=== PATIENT | female | born 2000 | race Caucasian/White ===

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

== ENCOUNTER 2022-03-27 21:21 | Emergency (ER) | payer OTHER ==
[2022-03-27 21:58] VITALS: BP 112/71; PULSE 86; TEMP 98.6; BMI 22.4
[2022-03-27] MEDS ORDERED: LIDOCAINE PATCH REMOVAL MC SCH (22:00)
[2022-03-27] MEDS ORDERED: ACETAMINOPHEN 500 MG TABLET (FP) PO ONE (23:25)
[2022-03-27] MEDS ORDERED: LIDOCAINE 5% TOPICAL PATCH TP ONE (23:27)
[2022-03-27] MEDS ORDERED: ACETAMINOPHEN 325 MG TABLET (FP) ONE (23:36)
[2022-03-27] MEDS ORDERED: LIDOCAINE 5% TOPICAL PATCH ONE (23:37)
[2022-03-27 23:53] LABS: URINE APPEARANCE CLEAR; URINE BILIRUBIN NEGATIVE (NEGATIVE); URINE COLOR YELLOW; URINE GLUCOSE (UA) NEGATIVE (NEGATIVE); URINE KETONE TRACE (NEGATIVE); URINE LEUK ESTERASE NEGATIVE (NEGATIVE); URINE NITRITE NEGATIVE (NEGATIVE); URINE PROTEIN NEGATIVE (NEGATIVE)
== END 2022-03-28 02:04 | disposition home or self-care (01) ==
LOC: JER 21:21
DX: M25.561 Pain in right knee (principal); M54.50 Low back pain, unspecified; V43.52XA Car driver injured in collision with other type car in traffic accident, initial encounter
CPT/HCPCS: 72070-TC-FY; 72100-TC-FY; 73562-TC-RT-FY; 81003; 84703; 99285-25

== ENCOUNTER 2022-05-23 00:01 | Emergency (ER) | payer OTHER ==
[2022-05-23 00:46] VITALS: BP 104/74; PULSE 90; RESP 20; TEMP 98.9; BMI 24.7
[2022-05-23 02:41] LABS: EPI CELLS >36 /uL (0-25.1); HYALINE CASTS 4 /uL (0-3.1); PH,URINE 5.5 (5.0-8.0); URINE APPEARANCE CLEAR; URINE BACTERIA 946 /uL (0-1359); URINE BILIRUBIN NEGATIVE (NEGATIVE); URINE COLOR YELLOW; URINE GLUCOSE (UA) NEGATIVE (NEGATIVE); URINE KETONE TRACE (NEGATIVE); URINE LEUK ESTERASE 2+ (NEGATIVE); URINE NITRITE NEGATIVE (NEGATIVE); URINE PROTEIN NEGATIVE (NEGATIVE); URINE RBC 3 /uL (0-23.9); URINE UROBILINOGEN 0.2 mg/dL (0.2-1.0); URINE WBC 34 /uL (0-25.8)
[2022-05-23 02:48] LABS: BASO % 0.5 % (0-2.0); HEMATOCRIT 37.8 % (32.4-45.2); HEMOGLOBIN 12.8 GM/dL (10.7-15.3); LYMPH % 27.1 % (8-40); MCH 28.8 pg (25.7-33.7); MCHC 33.8 g/dl (32.0-36.0); MEAN CELL VOLUME 85.1 fl (80-96); MEAN PLT VOLUME 7.8 fl (7.5-11.1); MONO % 11.9 % (3.8-10.2); NEUT % 60.5 % (42.8-82.8); PLATELET COUNT 300 10^3/uL (134-434); RBC 4.44 M/mm3 (3.60-5.2); RDW 13.4 % (11.6-15.6); WHITE BLOOD COUNT 6.4 K/mm3 (4.0-10.0)
[2022-05-23 03:00] LABS: CALCIUM 8.5 mg/dL (8.5-10.1)
[2022-05-23 03:01] LABS: ALBUMIN 3.7 g/dl (3.4-5.0)
[2022-05-23 03:04] LABS: CREATININE 0.6 mg/dL (0.55-1.3)
[2022-05-23 03:05] LABS: BILIRUBIN,TOTAL 0.2 mg/dL (0.2-1); TOT PROT 7.1 g/dl (6.4-8.2)
== END 2022-05-23 04:28 | disposition home or self-care (01) ==
LOC: JER 00:01
DX: O26.851 Spotting complicating pregnancy, first trimester (principal); Z3A.01 Less than 8 weeks gestation of pregnancy
CPT/HCPCS: 36415; 76817-TC; 80053; 81003; 84702; 84703; 85025; 86850; 86900; 86901; 87086; 99284-25